=== PATIENT | female | born 1950 | race Two or more races ===

== ENCOUNTER 2023-01-25 09:15 | Inpatient (IN) | payer OTHER ==
[~2023-01-25] VITALS: Ht 157.5 cm; Wt 69.9 kg
[2023-01-25 11:44] LABS: HEMATOCRIT 44.5 % (36.0-45.00); HEMOGLOBIN 14.7 g/dL (12.0-15.00); MEAN CORPUSCULAR HEMOGLOBIN 28.8 pg (27.00-32.0); MEAN CORPUSCULAR HGB CONC 33.1 g/dl (32.0-36.0); RED BLOOD COUNT 5.12 M/uL (4.00-6.00); RED CELL DISTRIBUTION WIDTH 13.8 % (11.5-14.5)
[2023-01-25 11:49] LABS: PH,URINE 5.5 (5.0-8.0); URINE APPEARANCE Clear; URINE BILIRRUBIN Negative (NEGATIVE); URINE BLOOD Small; URINE COLOR Yellow; URINE LEUKOCYTE Negative; URINE NITRATE Negative; URINE PROTEIN Negative (NEGATIVE); URINE UROBILINOGEN 0.2 E.U./dl
[2023-01-25 11:51] LABS: URINE BACTERIA 51.6 uL (0.0-1933); URINE EPITHELIAL CELLS 10.9 uL (0.0-38.8); URINE RBC 5.3 uL (0.0-20.8)
[2023-01-25 11:53] LABS: URINE GLUCOSE >=1000 MG/DL (NEGATIVE)
[2023-01-25] MEDS ORDERED: GLIPIZIDE XL10 MG PO (11:58)
[2023-01-25] MEDS ORDERED: LEVOTHYROXINE25 MCG PO (11:59)
[2023-01-25] MEDS ORDERED: JARDIANCE25 MG PO (11:59)
[2023-01-25] MEDS ORDERED: SYNTHROID137 MCG PO (12:03)
[2023-01-25] MEDS ORDERED: SYNTHROID150 MCG (12:04)
[2023-01-25] MEDS ORDERED: XANAX1 MG PO (12:04)
[2023-01-25] MEDS ORDERED: BACLOFEN20 MG PO (12:04)
[2023-01-25] MEDS ORDERED: MELOXICAM15 MG PO (12:05)
[2023-01-25] MEDS ORDERED: GABAPENT PO (12:05)
[2023-01-25 12:06] LABS: PLATELET COUNT 290 K/uL (150-450)
[2023-01-25 12:25] LABS: INR 1.03; PARTIAL THROMBOPLASTIN TIME 26.5 SECONDS (22.0-34.0); PROTHROMBIN TIME 10.8 SECONDS (9.0-11.5)
[2023-01-25 12:29] LABS: CALCIUM 9.6 mg/dL (8.5-10.1); CREATININE SERUM 0.54 mg/dL (0.55-1.02); GFR 110.66; POTASSIUM 4.06 mEq/L (3.5-5.1)
[2023-02-03] MEDS ORDERED: GABAPENTIN600 MG (06:11)
[2023-02-03] MEDS ORDERED: VENLAFAXINE HCL75 M1 (06:11)
[2023-02-03 08:31] LABS: HEMATOCRIT 38.6 % (36.0-45.00); MEAN CORPUSCULAR HEMOGLOBIN 28.9 pg (27.00-32.0); MEAN CORPUSCULAR HGB CONC 33.6 g/dl (32.0-36.0); PLATELET COUNT 260 K/uL (150-450); RED BLOOD COUNT 4.49 M/uL (4.00-6.00); RED CELL DISTRIBUTION WIDTH 13.6 % (11.5-14.5)
[2023-02-03 08:54] LABS: ALBUMIN 3.1 gm/dL (3.4-5.0); CALCIUM 8.8 mg/dL (8.5-10.1); CREATININE SERUM 0.86 mg/dL (0.55-1.02); GFR 64.68; PHOSPHOROUS 4.3 mg/dL (2.5-4.9); POTASSIUM 3.77 mEq/L (3.5-5.1)
== END 2023-02-03 12:02 | disposition home or self-care (01) | DRG 658 ==
LOC: O/R 02-02 06:00 → SURG 02-02 09:15 → SURH 02-02 20:39
PROVIDERS: ADMIT Urology; ATTEND Urology
PROC: 0TT04ZZ Resection of Right Kidney, Percutaneous Endoscopic Approach (ICD-10-PCS; principal; 2023-02-02 12:45)
DX: C64.1 Malignant neoplasm of right kidney, except renal pelvis (principal); Z20.822 Contact with and (suspected) exposure to COVID-19